=== PATIENT | male | born 1995 | race African-American/Black ===

== ENCOUNTER 2017-01-16 00:25 | Emergency (ER) | payer BC, OTHER ==
[~2017-01-16] VITALS: Ht 190.5 cm; Wt 84.8 kg
[2017-01-16 00:28] VITALS: TEMP 36.9; Ht 190.5 cm; Wt 84.8 kg
[2017-01-16 00:49] VITALS: O2SAT 97
--- NOTE | 2017-01-16 01:12 | EMERGENCY ROOM VISIT NOTE ---
History Report prepared by Scribe: Shadi Keys Under the Supervision of: Dr. Payam Alfonso D.O. First contact with patient: 01:00 Chief Complaint: CHEST PAIN Stated Complaint: SHARP CHEST PAINS NEAR HEART AREA Nursing Triage Summary: chest pain started approx 1 hour ago. pt with recent cold and cough. pain is located under L breast. pain does not radiate. no hx of long travel. normally physically active. cough non productive. pain worsens with deep breathing. History of Present Illness The patient is a 21 year old male who presents to the Emergency Room with complaints of persistent left-sided chest pain that started approximately one hour COURT CRIER. The patient was laying down at onset. The pain is sharp in nature and is worse with breathing. The patient had similar pain in the past when he was diagnosed with a leaky valve. His father has heart disease in his 40s. The patient has had a cough as he is recovering from a cold. He denies heavy lifting prior to onset. Source of History: patient Onset: one hour COURT CRIER Position: chest (left) Quality: sharp Timing: other (persistent) Modifying Factors (Worsening): breathing Review of Systems See HPI for pertinent positives and negatives. A total of ten systems were reviewed and were otherwise negative. Past Medical & Surgical Medical Problems: (1) Leaky heart valve Family History FH: heart disease Social History Smoking Status: Never Smoker Occupation Status: [employer] student Current/Historical Medications No Active Prescriptions or Reported Meds Allergies Coded Allergies: No Known Allergies (Unverified , 01/16/17) Physical Exam Vital Signs Date Time Temp Pulse Resp B/P Pulse Ox O2 Delivery O2 Flow Rate FiO2 01/16/17 00:49 56 21 131/79 98 Room Air 01/16/17 00:49 97 Room Air 01/16/17 00:49 99 Room Air 01/16/17 00:40 57 01/16/17 00:28 36.9 62 16 125/75 96 Room Air Physical Exam GENERAL: Awake, alert, well-appearing, in no distress HENT: Normocephalic, atraumatic. Oropharynx unremarkable. EYES: Normal conjunctiva. Sclera non-icteric. NECK: Supple. No nuchal rigidity. FROM. No JVD. RESPIRATORY: Clear to auscultation. CARDIAC: Regular rate, normal rhythm. Extremities warm and well perfused. Pulses equal. ABDOMEN: Soft, non-distended. No tenderness to palpation. No rebound or guarding. No masses. RECTAL: Deferred. MUSCULOSKELETAL: Chest examination reveals no tenderness. The back is symmetrical on inspection without obvious abnormality. There is no CVA tenderness to palpation. No joint edema. LOWER EXTREMITIES: Calves are equal size bilaterally and non-tender. No edema. No discoloration. NEURO: Normal sensorium. No sensory or motor deficits noted. SKIN: No rash or jaundice noted. Medical Decision & Procedures ER Provider Diagnostic Interpretation: X-ray: Per my interpretation. Chest One View Portable: Negative for infiltrate, normal mediastinum, no pneumothorax. Medications Administered Medications (Trade) Dose Ordered Sig/Gina Route Start Time Stop Time Status Last Admin Dose Admin Ketorolac Tromethamine (Toradol Inj) 30 mg NOW STAT IV 01/16/17 01:22 01/16/17 01:23 DC 01/16/17 01:41 30 MG ECG Indication: chest pain Rate (beats per minute): 53 Rhythm: sinus bradycardia Findings: other (early repolarization. normal axis.) ED Course 0110: The patient was evaluated in room A12b. A complete history and physical exam was performed. 0122: Toradol 30 mg IV. 0200: Reassessed the patient. He is resting in no distress, feeling much better. Vital signs are normal. Discussed the discharge instructions with him. He verbalized understanding. The patient is ready for discharge. Medical Decision Differential diagnosis: Costochondritis pleurisy and pneumonia musculoskeletal chest pain I doubt acute coronary syndrome thoracic aortic dissection or pulmonary embolism. Repeat examination patient's resting in no distress pulse ox is normal his heart rate is 57 he has J-point elevation diffusely I do not think that this is pericarditis or acute coronary syndrome Impression Primary Impression: Chest wall pain Scribe Attestation The scribe's documentation has been prepared under my direction and personally reviewed by me in its entirety. I confirm that the note above accurately reflects all work, treatment, procedures, and medical decision making performed by me. Departure Information Dispostion Home / Self-Care Prescriptions No Active Prescriptions or Reported Meds Referrals No Doctor, Assigned (PCP) Forms HOME CARE DOCUMENTATION FORM, IMPORTANT VISIT INFORMATION Patient Instructions ED Chest Pain Susannah Romero [facility]
[2017-01-16] MEDS ORDERED: KETOROLAC TROMETHAMINE 30 MG/ML VIAL IV STA (01:22)
[2017-01-16 02:11] VITALS: BP 134/87; PULSE 57; O2SAT 99
--- NOTE | 2017-01-16 07:35 | DIAGNOSTIC IMAGING REPORT ---
CHEST ONE VIEW PORTABLE CLINICAL HISTORY: Chest pain. COMPARISON STUDY: No previous studies for comparison. FINDINGS: Lung volumes are at the lower limits of normal. There is no pneumothorax or pleural effusion. Cardiac size is normal. Mediastinal contours are normal. There is no evidence of pulmonary edema. IMPRESSION: No acute cardiopulmonary findings. Electronically signed by: Ketan Campos M.D. 01/16/2017 7:34 AM Dictated Date/Time: 01/16/2017 7:33 AM
== END 2017-01-16 02:12 | disposition home or self-care (01) ==
LOC: C.EDB 00:26 → C.EDA 02:12
DX: R07.89 Other chest pain (principal); R00.1 Bradycardia, unspecified; Z95.2 Presence of prosthetic heart valve